=== PATIENT | female | born 1935 | race Asian ===

== ENCOUNTER 2016-12-07 13:00 | Observation (INO) ==
--- NOTE | 2016-12-07 13:13 | Emergency Department Note ---
Disposition Clinical Impression: ESRD on hemodialysis, Elevated lactic acid level Upper respiratory infection Qualifiers: URI type: unspecified URI Qualified Code(s): J06.9 - Acute upper respiratory infection, unspecified Fever Qualifiers: Fever type: unspecified Qualified Code(s): R50.9 - Fever, unspecified Disposition: Admitted As Inpatient Referrals: Tripp Pope MD [Primary Care Provider] - Forms: ED Satisfaction Letter URI/Sore Throat HPI - General Chief Complaint: ED Upper Respiratory Infection Stated Complaint: Cough and a fever Time Seen by Provider: 12/07/16 13:08 Source: patient, EMS Mode of arrival: EMS Limitations: no limitations Nursing Notes Reviewed: Yes Vital Signs Reviewed: Yes - History of Present Illness HPI Narrative: Patient relates she received a pneumonia shot yesterday in the right arm. She states she has had a lot of pain in the area of the shunt and she has had fevers , chills and some malaise today. She did complete her normal dialysis but had a temperature about 101 and has been sent here for evaluation. She does report a little bit of a cough and shortness of breath but she states that because of her asthma and other medical problems. She also does note that she had a recent pneumonia. She denies nausea, vomiting or diarrhea. She denies chest pain or abdominal pain. She denies any lower extremity swelling or complaint. She states she does make urine and she has not had burning or abnormal odor. She denies any ill exposures. Pt Subjective Complaint: fever, cough Onset (ago): hour(s) Duration: constant Severity: moderate Improves with: nothing Worsens with: nothing Context: multiple patients with similar complaints Associated symptoms: Reports: fever, chills, cough. Denies: voice changes, myalgias, diaphoresis, headache, rhinorrhea, nasal congestion, sore throat, stiff neck, chest pain, shortness of breath, abdominal pain, nausea, vomiting, diarrhea, dysuria, rash, epistaxis, ear pain Treatments prior to arrival: other healthcare encounter for this problem ( Patient just completed dialysis and has been referred here by the lumber tallier.) - Related Data Home Medications Medication Instructions Recorded Confirmed Sodium Bicarbonate 1,950 mg PO DAILY 02/26/16 11/23/16 Amlodipine [Norvasc] 5 mg PO DAILY 11/23/16 11/23/16 Glimepiride [Amaryl] 2 mg PO DAILY 11/23/16 11/23/16 Metoprolol Succinate [Toprol Xl] 50 mg PO DAILY 11/23/16 11/23/16 Milk Thistle 1,000 mg PO DAILY 11/23/16 11/23/16 Previous Rx's Medication Instructions Recorded Levofloxacin [Levaquin] 500 mg PO DAILY #3 tablet 11/29/16 Omeprazole [PriLOSEC] 20 mg PO DAILY@0630 capsule. 11/29/16 Oxycodone HCl/Acetaminophen 1 each PO BID PRN #25 tablet 11/29/16 [Percocet 5-325 mg Tablet] Allergies Allergy/AdvReac Type Severity Reaction Status Date / Time No Known Allergies Allergy Unverified 02/26/16 17:18 All systems ED: reviewed and negative except as stated. URI PMH - Past Medical History Medical history: Reports: asthma, diabetes, hypertension, liver disease (hep C) , renal disease (ESRD on HD MWF) Surgical history: Reports: other (sinus surgery, abdominal abscess (age 34), LUE AVF) Psychiatric history: Reports: no psych history SENIOR ENERGY CONSULTANT history: Reports: no SENIOR ENERGY CONSULTANT history - Social History Smoking Status: Never smoker Alcohol use: Reports: none Drug use: Reports: none Physical Exam - General Limitations: no limitations General appearance: alert, in no apparent distress - Head Head exam: atraumatic, normocephalic, normal inspection - Eye Eye exam: Present: normal appearance, PERRL, EOMI. Absent: scleral icterus, conjunctival injection - ENT ENT exam: normal exam, normal oropharynx, mucous membranes moist - Neck Neck exam: Present: normal inspection, full ROM, trachea midline - Chest Chest inspection: Present: normal inspection, symmetric chest wall rise. Absent : tenderness - Respiratory Respiratory exam: Present: normal lung sounds bilaterally. Absent: respiratory distress, wheezes, prolonged expiratory phase - Cardiovascular Cardiovascular exam: Present: regular rate, normal rhythm, normal heart sounds. Absent: tachycardia - Abdominal Exam Abdominal exam: Present: soft, Non-Tender, normal bowel sounds. Absent: tenderness, distention, guarding, rebound, rigidity - Extremities Exam Extremities exam: Present: normal inspection, full ROM, normal capillary refill. Absent: tenderness, pedal edema - Expanded Lower Extremity Exam Neurovascular/Tendon exam: Present: normal capillary refill. Absent: motor deficit, sensory deficit, tendon deficit Gait: not tested/not observed - Back Exam Back exam: Present: normal inspection, full ROM. Absent: tenderness, CVA tenderness (R), CVA tenderness (L) - Neurological Exam Neurological exam: Present: alert, oriented X3 - Psychiatric Psychiatric exam: Present: normal affect, normal mood - Skin Skin exam: Present: warm, dry, intact, normal color. Absent: diaphoresis, pallor Course Course Narrative: 1630: Care has been discussed with Dr. Grove who is agreeable with observation to this facility. Vital Signs Temperature 101.3 F H 12/07/16 13:03 Pulse Rate 90 12/07/16 13:03 Respiratory Rate 16 12/07/16 13:03 Blood Pressure 144/61 12/07/16 13:03 O2 Sat by Pulse Oximetry 97 12/07/16 13:03 Temperature 100.6 F H 12/07/16 18:16 Pulse Rate 86 12/07/16 18:16 Respiratory Rate 18 12/07/16 18:16 Blood Pressure 146/63 12/07/16 18:16 O2 Sat by Pulse Oximetry 94 L 12/07/16 18:16 Oxygen Delivery Oxygen Delivery Room Air Upper Respiratory Infection - Differential Diagnosis Differential Diagnosis: Likely: upper respiratory infection, bronchitis, pneumonia - Medical Records Medical records reviewed: Yes I reviewed the patient's medical records. - Lab Data Lab results reviewed: Yes I reviewed the patient's lab results. Result diagrams: 12/07/16 13:37 12/07/16 13:37 Lab Results 12/07/16 12/07/16 12/07/16 Range/Units 13:37 13:37 13:37 WBC 10.2 (4.3-11.1) K/mcL RBC 3.73 L (3.82-4.97) M/mcL Hgb 11.9 (11.5-15.4) g/dL Hct 36.6 (35.3-44.9) % MCV 98.1 (83.0-100.0) fL MCH 31.9 (28.0-33.3) pg MCHC 32.5 (31.6-35.5) g/dL RDW 17.8 H (11.5-14.5) % Plt Count 148 (140-400) K/mcL MPV 8.7 L (9.4-12.4) fL Immature Gran % 0.4 (0-4) % Seg Neutrophils % 82.9 % Lymphocytes % 9.7 % Monocytes % 5.7 % Eosinophils % 1.0 % Basophils % 0.3 % Neutrophils # 8.4 (1.6-8.9) K/mcL Lymphocytes # 1.0 (0.6-4.6) K/mcL Monocytes # 0.6 (0.0-1.3) K/mcL Eosinophils # 0.1 (0.0-0.6) K/mcL Basophils # 0.0 (0.0-0.2) K/mcL PT 11.3 (9.4-12.1) Seconds INR 1.0 APTT 32.2 (26.0-36.0) Seconds VBG Lactic Acid (0.5-2.2) mmol/L Sodium 137 (136-145) mEq/L Potassium 3.4 L (3.5-4.5) mEq/L Chloride 103 (98-109) mEq/L Carbon Dioxide 23 (19-29) mEq/L BUN 16 (7-20) mg/dL Creatinine 1.84 H (0.57-1.11) mg/dL Est GFR ( Amer) 32 L (> 60) Est GFR (Non-Af Amer) 26 L (> 60) BUN/Creatinine Ratio 9 (6-26) Glucose 129 H (70-99) mg/dL Calculated Osmolality 287 (280-300) Calcium 7.9 L (8.6-10.8) mg/dL Total Bilirubin 0.7 (0.2-1.2) mg/dL Direct Bilirubin 0.4 (0.0-0.5) mg/dL Indirect Bilirubin 0.3 (0.0-1.2) mg/dL AST 37 H (5-34) Units/L ALT 19 (0-55) Units/L Alkaline Phosphatase 161 H (38-126) Units/L Serum Total Protein 6.7 (6.0-8.3) g/dL Albumin 2.4 L (3.5-5.0) g/dL Globulin 4.3 H (2.4-3.5) g/dL Albumin/Globulin Ratio 0.6 L (1.1-2.2) Urine Color (Yellow) Urine Clarity (Clear) Urine pH (5.0-8.0) pH Units Ur Specific [place] (1.010-1.025) Urine Protein (Neg-Trace) mg/dL Urine Glucose (UA) (Normal) mg/dL Urine Ketones (Negative) mg/dL Urine Blood (Negative) Urine Nitrite (Negative) Urine Bilirubin (Negative) Urine Urobilinogen (Normal) mg/dL Ur Leukocyte Esterase (Negative) Urine Microscopic RBC (0-3) per hpf Urine Microscopic WBC (0-3) per hpf Ur Squamous Epith Cells (None-Few) per lpf Hyaline Casts (None-Few) per lpf Granular Casts (None Seen) per lpf Ur Culture Indicated? (NO) 12/07/16 12/07/16 Range/Units 13:37 13:50 WBC (4.3-11.1) K/mcL RBC (3.82-4.97) M/mcL Hgb (11.5-15.4) g/dL Hct (35.3-44.9) % MCV (83.0-100.0) fL MCH (28.0-33.3) pg MCHC (31.6-35.5) g/dL RDW (11.5-14.5) % Plt Count (140-400) K/mcL MPV (9.4-12.4) fL Immature Gran % (0-4) % Seg Neutrophils % % Lymphocytes % % Monocytes % % Eosinophils % % Basophils % % Neutrophils # (1.6-8.9) K/mcL Lymphocytes # (0.6-4.6) K/mcL Monocytes # (0.0-1.3) K/mcL Eosinophils # (0.0-0.6) K/mcL Basophils # (0.0-0.2) K/mcL PT (9.4-12.1) Seconds INR APTT (26.0-36.0) Seconds VBG Lactic Acid 2.8 H (0.5-2.2) mmol/L Sodium (136-145) mEq/L Potassium (3.5-4.5) mEq/L Chloride (98-109) mEq/L Carbon Dioxide (19-29) mEq/L BUN (7-20) mg/dL Creatinine (0.57-1.11) mg/dL Est GFR ( Amer) (> 60) Est GFR (Non-Af Amer) (> 60) BUN/Creatinine Ratio (6-26) Glucose (70-99) mg/dL Calculated Osmolality (280-300) Calcium (8.6-10.8) mg/dL Total Bilirubin (0.2-1.2) mg/dL Direct Bilirubin (0.0-0.5) mg/dL Indirect Bilirubin (0.0-1.2) mg/dL AST (5-34) Units/L ALT (0-55) Units/L Alkaline Phosphatase (38-126) Units/L Serum Total Protein (6.0-8.3) g/dL Albumin (3.5-5.0) g/dL Globulin (2.4-3.5) g/dL Albumin/Globulin Ratio (1.1-2.2) Urine Color Yellow (Yellow) Urine Clarity Clear (Clear) Urine pH 8.5 H (5.0-8.0) pH Units Ur Specific [place] 1.020 (1.010-1.025) Urine Protein >=300 H (Neg-Trace) mg/dL Urine Glucose (UA) 500 H (Normal) mg/dL Urine Ketones Negative (Negative) mg/dL Urine Blood Small H (Negative) Urine Nitrite Negative (Negative) Urine Bilirubin Negative (Negative) Urine Urobilinogen Normal (Normal) mg/dL Ur Leukocyte Esterase Negative (Negative) Urine Microscopic RBC 3-5 H (0-3) per hpf Urine Microscopic WBC 0-3 (0-3) per hpf Ur Squamous Epith Cells Few (None-Few) per lpf Hyaline Casts Few (None-Few) per lpf Granular Casts Few H (None Seen) per lpf Ur Culture Indicated? NO (NO) - Radiology Data Radiology results reviewed: Yes I reviewed the patient's radiology results. Single view chest x-ray is performed. This does not demonstrate evidence for infiltrate, effusion, pneumothorax, foreign body or heart failure. The cardiac silhouette is normal. I do not see abnormality to the osseous structures of the chest. This is on my interpretation. Impressions Chest X-Ray 12/07/16 13:13 IMPRESSION: No acute process. D/ / Bigg Anders MD / Bigg Anders MD Interpreting Provider: Bigg Anders MD
[2016-12-07 13:44] LABS: Basophils % 0.3 %; Eosinophils # 0.1 K/mcL (0.0-0.6); Hematocrit 36.6 % (35.3-44.9); Hemoglobin 11.9 g/dL (11.5-15.4); Immature Granulocytes % 0.4 % (0-4); Lymphocytes % 9.7 %; Mean Corpuscular HGB Conc 32.5 g/dL (31.6-35.5); Mean Corpuscular Hemoglobin 31.9 pg (28.0-33.3); Mean Corpuscular Volume 98.1 fL (83.0-100.0); Mean Platelet Volume 8.7 fL (9.4-12.4); Monocytes # 0.6 K/mcL (0.0-1.3); Monocytes % 5.7 %; Neutrophils # 8.4 K/mcL (1.6-8.9); Platelet Count 148 K/mcL (140-400); Red Blood Count 3.73 M/mcL (3.82-4.97); Red Cell Distribution Width 17.8 % (11.5-14.5); Segmented Neutrophils % 82.9 %
[2016-12-07 13:49] LABS: Prothrombin Time 11.3 Seconds (9.4-12.1)
[2016-12-07 13:52] LABS: Activated Partial Thrombo Time 32.2 Seconds (26.0-36.0)
[2016-12-07 14:35] LABS: Albumin 2.4 g/dL (3.5-5.0); Albumin/Globulin Ratio 0.6 (1.1-2.2); Bilirubin,Direct 0.4 mg/dL (0.0-0.5); Bilirubin,Indirect 0.3 mg/dL (0.0-1.2); Bilirubin,Total 0.7 mg/dL (0.2-1.2); Calcium 7.9 mg/dL (8.6-10.8); Globulin 4.3 g/dL (2.4-3.5); Potassium 3.4 mEq/L (3.5-4.5); Total Protein 6.7 g/dL (6.0-8.3)
[2016-12-07] MEDS ORDERED: Promethazine/Codeine Oral Sryup 5 ML UDC PO ONE (16:01)
[2016-12-07 16:07] LABS: Bilirubin,Urine Negative (Negative); Blood,Urine Small (Negative); Clarity,Urine Clear (Clear); Color,Urine Yellow (Yellow); Glucose,Urine (UA) 500 mg/dL (Normal); Ketones,Urine Negative (Negative); Leukocyte Esterase,Urine Negative (Negative); Nitrite,Urine Negative (Negative); PH,Urine 8.5 pH Units (5.0-8.0); Protein,Urine >=300 mg/dL (Neg-Trace); Urobilinogen,Urine Normal (Normal)
[2016-12-07] MEDS ORDERED: Piperacillin/Tazobactam 3.375 GM in D5% in Water (Mini-Bag+) 100 ML IVPB ONE (16:12)
[2016-12-07 16:16] LABS: Granular Casts,Urine Few per lpf (None Seen); Hyaline Casts,Urine Few per lpf (None-Few); Squamous Epithelial Cell,Urine Few per lpf (None-Few); WBC,Urine 0-3 per hpf (0-3)
[2016-12-07] MEDS ORDERED: PredniSONE 20 MG TABLET PO ONE (20:00)
[2016-12-08] MEDS ORDERED: *HR* Glimepiride 2 MG TABLET PO SCH (08:00)
[2016-12-08] MEDS ORDERED: Metoprolol XL (24 HR) Succ 50 MG TAB.ER.24H PO SCH (09:00)
[2016-12-08] MEDS ORDERED: *HR* Dextrose 50 % in Water (Syg) 50 ML SYRINGE IVP PRN (12:16)
[2016-12-08] MEDS ORDERED: D5% in Water 1,000 ML IV PRN (12:16)
[2016-12-08] MEDS ORDERED: Dextrose Gel 15 GM PO PRN ×2 (12:16)
[2016-12-08] MEDS ORDERED: Insulin LISPRO 300 UNITS/3 ML VIAL SQ SCH ×3 (12:45→21:00)
[2016-12-08 14:22] VITALS: BP 158/45
--- NOTE | 2016-12-08 15:39 | Internal Med History&Physical ---
Date of Encounter: 12/08/16 Time of Encounter: 15:00 Assessment and Plan (1) Fever Current visit: Yes Status: Acute Possible reaction to pneumonia vaccine and/or viral infection. There is no evidence of pneumonia or UTI at this time. Qualifiers: Fever type: unspecified Qualified Code(s): R50.9 - Fever, unspecified (2) Hypokalemia Current visit: Yes Status: Acute We will start low dose potassium supplement (3) Vitamin D deficiency Current visit: Yes Status: Acute Will recheck vitamin D level at group home (4) Weight loss Current visit: Yes Status: Acute We will check TSH at group home (5) Hepatitis C Current visit: Yes Status: Chronic Qualifiers: Viral hepatitis chronicity: unspecified Hepatic coma status: without hepatic coma Qualified Code(s): B19.20 - Unspecified viral hepatitis C without hepatic coma (6) Type 2 diabetes mellitus Current visit: No Status: Chronic Hemoglobin A1c was 6.1% on 11/23/2016. Continue Amaryl Qualifiers: Diabetes mellitus complication status: with kidney complications Diabetes mellitus complication detail: with chronic kidney disease Diabetes mellitus care home insulin use: without care home use Chronic kidney disease stage: on chronic dialysis Qualified Code(s): E11.22 - Type 2 diabetes mellitus with diabetic chronic kidney disease; N18.6 - End stage renal disease; Z99.2 - Dependence on renal dialysis (7) High blood pressure Current visit: Yes Status: Chronic Continue metoprolol and Norvasc Qualifiers: Hypertension type: essential hypertension Qualified Code(s): I10 - Essential (primary) hypertension Internal Medicine - H&P: HPI Chief complaint: Fever Admitted From: Long-term Nursing Facility Plans for Post Hospital Care: Transfer Custodial Facility History of present illness: Ms. Wagoner is a 81 year old female who came to emergency room after developing fever of 101 following dialysis earlier in the day. She reported significant pain and redness in her right arm where she had received a pneumonia shot the previous day. She was evaluated in emergency room and felt to deserve admission to observation status for ongoing care needs. She states she feels significantly improved at the present time. She reports the pain in her right arm has lessened. She denies nausea vomiting diarrhea or significant cough. She feels she is stable for discharge back to the [facility] for ongoing rehabilitation therapy. She was hospitalized at [facility] approximately 14 days ago with complaints of abdominal pain. It was felt she possibly had pancreatitis although lipase was only 123. Gallbladder ultrasound showed no gallstones but small amount of sludge suggestive of acute acalculous cholecystitis. Abdominal CT showed a left adrenal nodule. She declined colonoscopy during the hospital stay. She denies abdominal pain at this time. Her GI history is pertinent otherwise for hepatitis C with interferon treatment 2005. She has occasional GERD symptoms. Past Med Surg Social Fam HX - Past Medical History Medical history: asthma, diabetes, hypertension, liver disease, renal disease Psychiatric history: no psych history - Past Surgical History Surgical History: other - Social History Smoking Status: Never smoker Smokeless Tobacco Status: No Alcohol use: none Drug use: none - Family History Mother Living Status: Hx Family Cardiac Disorders: Yes Father Living Status: Hx Family Endocrine Disorder: Yes (diabetes) Internal Medicine - H&P: Meds Sodium Bicarbonate 1,950 mg PO DAILY 02/26/16 [History] Amlodipine [Norvasc] 5 mg PO DAILY 11/23/16 [History] Glimepiride [Amaryl] 2 mg PO DAILY 11/23/16 [History] Metoprolol Succinate [Toprol Xl] 50 mg PO DAILY 11/23/16 [History] Milk Thistle 1,000 mg PO DAILY 11/23/16 [History] Levofloxacin [Levaquin] 500 mg PO DAILY #3 tablet 11/29/16 [Rx] Omeprazole [PriLOSEC] 20 mg PO DAILY@0630 capsule. 11/29/16 [Rx] Oxycodone HCl/Acetaminophen [Percocet 5-325 mg Tablet] 1 each PO BID PRN #25 tablet 11/29/16 [Rx] Allergies No Known Allergies Allergy (Unverified 02/26/16 17:18) All Systems PM: A 10-system review of systems was performed and is negative for pertinent findings except as documented above in the HPI. Review of systems: Gen.: She states her weight has decreased approximately 5-10 pounds in the past year Cardiovascular: She has history of hypertension but denies [place] heart failure angina DVT or pulmonary embolus Respiratory: She is a lifelong nonsmoker has no documented chronic lung disease. She has not had pneumonia before the recent [facility] stay. She does not use oxygen at the group home. GI: As per history of present illness : She has CKD stage V and has hemodialysis MWF. She denies other kidney or bladder disorders Neurologic: She denies large distribution strokes or seizures. Endocrine: She was diagnosed with DM 2 approximately 1996. She has hyperlipidemia but denies thyroid disease. No TSH or other thyroid test results are noted in the archived labs Hematology/oncology: She denies blood disorders cancers or anemia Psychiatric: She denies anxiety depression or other mental health issues Musk skeletal: She has DJD. Her vitamin D level was 7 on 04/14/2015 but she does not presently take vitamin D supplement. - Constitutional Vitals: Temp Pulse Resp BP Pulse Ox 98.1 F 58 16 158/45 94 L 12/08/16 14:21 12/08/16 14:21 12/08/16 14:21 12/08/16 14:21 12/08/16 14:21 Exam: Gen.: She is a well-developed well-nourished female who appears in no severe distress at present time. HEENT: Head is atraumatic and normocephalic. Eyes: EOMI. There is no scleral icterus. Mouth: Mucosa is moist. Neck: Supple and nontender. There is no thyromegaly or adenopathy noted. Heart: Regular without murmurs gallops or ectopics. Lungs: No wheezes or crackles are heard. Abdomen: Soft and nontender. No masses or guarding noted. Extremities: She has AV fistula in the left upper arm. It has a palpable thrill. The right arm shows minimal edema and erythema in the posterior mid upper triceps area extending down to the elbow. There is no tenderness to touch or on movement of the elbow. Her feet show no cyanosis edema or clubbing . Neurologic: Mental status: She is talkative and a good historian. Cranial nerves: Smile is symmetric. Forehead wrinkles bilaterally. Tongue protrudes midline. EOMI. Motor: There is no pronator drift. Cerebellar: Finger to nose is intact bilaterally. Skin: Warm and dry Internal Med - H&P Results - Labs CBC & Chem 7: 12/07/16 13:37 12/07/16 13:37
--- NOTE | 2016-12-08 15:57 | Discharge Summary ---
Date of Encounter: 12/08/16 Time of Encounter: 15:00 - Discharge Diagnosis (1) Fever Priority: Primary Status: Acute Qualifiers: Fever type: unspecified Qualified Code(s): R50.9 - Fever, unspecified (2) Hypokalemia Priority: Secondary Status: Acute (3) Vitamin D deficiency Priority: Secondary Status: Chronic (4) Weight loss Priority: Secondary Status: Acute (5) Hepatitis C Priority: Secondary Status: Chronic Qualifiers: Viral hepatitis chronicity: unspecified Hepatic coma status: without hepatic coma Qualified Code(s): B19.20 - Unspecified viral hepatitis C without hepatic coma (6) Type 2 diabetes mellitus Priority: Secondary Status: Chronic Qualifiers: Diabetes mellitus complication status: with kidney complications Diabetes mellitus complication detail: with chronic kidney disease Diabetes mellitus prison insulin use: without terminal carman use Chronic kidney disease stage: on chronic dialysis Qualified Code(s): E11.22 - Type 2 diabetes mellitus with diabetic chronic kidney disease; N18.6 - End stage renal disease; Z99.2 - Dependence on renal dialysis (7) High blood pressure Priority: Secondary Status: Chronic Qualifiers: Hypertension type: essential hypertension Qualified Code(s): I10 - Essential (primary) hypertension - Discharge Medications Prescriptions: Potassium Chloride 10 meq PO DAILY 30 Days Home Medications: Sodium Bicarbonate 1,950 mg PO DAILY 02/26/16 [History] Amlodipine [Norvasc] 5 mg PO DAILY 11/23/16 [History] Glimepiride [Amaryl] 2 mg PO DAILY 11/23/16 [History] Metoprolol Succinate [Toprol Xl] 50 mg PO DAILY 11/23/16 [History] Milk Thistle 1,000 mg PO DAILY 11/23/16 [History] Levofloxacin [Levaquin] 500 mg PO DAILY #3 tablet 11/29/16 [Rx] Omeprazole [PriLOSEC] 20 mg PO DAILY@0630 capsule. 11/29/16 [Rx] Oxycodone HCl/Acetaminophen [Percocet 5-325 mg Tablet] 1 each PO BID PRN #25 tablet 11/29/16 [Rx] Potassium Chloride 10 meq PO DAILY 30 Days 12/08/16 [Rx] Allergies/Adverse Reactions: Allergies No Known Allergies Allergy (Unverified 02/26/16 17:18) Date of admission: 12/07/16 18:39 Primary care physician: Tripp Pope MD Consults: 12/07/16 19:56 Consult to Nutrition [CONS] Routine Comment: Consulting Provider: NUTRITION Reason for Dietary Consult: MST Score - Patient Status Disposition: Transfer SNF Overall status at discharge: patient is progressing back to baseline - Discharge Instructions Follow Up With: Tripp Pope MD [Primary Care Provider] - 1 week - Diet and Activity Activity: resume usual activities as tolerated Diet: advance to your usual diet Hospital course: Ms. Waogner is a 81 year old female who came to emergency room after developing fever of 101 following dialysis earlier in the day. She reported significant pain and redness in her right arm where she had received a pneumonia shot the previous day. She was evaluated in emergency room and felt to deserve admission to observation status for ongoing care needs. Initial orders were written by the emergency room physician. I saw her on December 08 and performed history and physical and discharge. She was given a single dose of IV Zosyn in emergency room. She was started on prednisone and Benadryl for possible allergic reaction in the right arm. The following day there was significant improvement in the right arm pain and swelling and she felt near her baseline. She wished to be discharged back to [facility] for ongoing rehabilitation therapy. Fever lisa to 103.1 in emergency room but [facility] and she remained afebrile for the remainder of the hospital stay. I did not feel she needed additional further treatment for the right arm erythema since it was significantly improved already. She will be discharged back to [facility] and follow with Dr. Pope. I started her on potassium chloride 10 mEq daily for her hypokalemia. Follow-up lab work will be ordered in a few days. - Time Spent with Patient Total time spent providing and/or coordinating discharge services: - Constitutional Vitals: Temp Pulse Resp BP Pulse Ox 98.1 F 58 16 158/45 94 L 12/08/16 14:21 12/08/16 14:21 12/08/16 14:21 12/08/16 14:21 12/08/16 14:21
--- NOTE | 2016-12-08 16:03 | Physician Discharge Referral ---
ExtendedCare Referral Info Transfer To: [facility] Provider in Charge: Perfecto Provider in Charge after Transfer: PCP Emelia) Institutional Level of Care: Skilled - Diagnosis (1) Fever Priority: Primary Status: Acute (2) Hypokalemia Priority: Secondary Status: Acute (3) Vitamin D deficiency Priority: Secondary Status: Chronic (4) Weight loss Priority: Secondary Status: Acute (5) Hepatitis C Priority: Secondary Status: Chronic (6) Type 2 diabetes mellitus Priority: Secondary Status: Chronic (7) High blood pressure Priority: Secondary Status: Chronic Prognosis: Good Aware of Diagnosis: Patient Aware of Prognosis: Patient - Transfer Medications Prescriptions: Potassium Chloride 10 meq PO DAILY 30 Days Home Medications: Sodium Bicarbonate 1,950 mg PO DAILY 02/26/16 [History] Amlodipine [Norvasc] 5 mg PO DAILY 11/23/16 [History] Glimepiride [Amaryl] 2 mg PO DAILY 11/23/16 [History] Metoprolol Succinate [Toprol Xl] 50 mg PO DAILY 11/23/16 [History] Milk Thistle 1,000 mg PO DAILY 11/23/16 [History] Levofloxacin [Levaquin] 500 mg PO DAILY #3 tablet 11/29/16 [Rx] Omeprazole [PriLOSEC] 20 mg PO DAILY@0630 capsule. 11/29/16 [Rx] Oxycodone HCl/Acetaminophen [Percocet 5-325 mg Tablet] 1 each PO BID PRN #25 tablet 11/29/16 [Rx] Potassium Chloride 10 meq PO DAILY 30 Days 12/08/16 [Rx] Allergies/Adverse Reactions: Allergies No Known Allergies Allergy (Unverified 02/26/16 17:18) - Respiratory Orders Smoking Cessation: Smoking cessation has been advised. For more information, call the [place] Tobacco Quit Line at 2-696-BRKJ-NOW. - Lab Orders Lab Orders: Other (include drug levels w/frequency) (CBC, CMP, magnesium level, 25 [place] vitamin D, and TSH in one week) - Mobility Orders Ambulate - Rehabiliation Orders Rehab Potential: Good CERTIFICATION: I certify that the transfer of the above named patient to an Extended Care Facility is necessary for the continuing treatment of the diagnosis listed. The above information is true and accurate reflection of patient's current condition. Confidential - Redisclosure prohibited without a patient's written consent.
== END 2016-12-08 16:20 ==
LOC: INPPIK 13:00 → EMEROOPIK 13:00 → INPPIK 18:47
PROVIDERS: ADMIT Internal Medicine; ATTEND Internal Medicine